=== PATIENT | female | born 2000 | race Caucasian/White ===

== ENCOUNTER 2019-06-19 22:54 | Emergency (ER) | payer OTHER ==
[~2019-06-19] VITALS: Ht 165.1 cm; Wt 69.9 kg
[2019-06-19] MEDS ORDERED: RX-ALBUTEROL INHALER (PROAIR) 8.5 GM IH PRN (23:30)
--- NOTE | 2019-06-19 23:53 | ED Cough/URI ---
General Chief Complaint: Cough/Cold/Flu Symptoms Stated Complaint: COUGHING,DIAG WITH FLU LAST WEEK Nursing Triage Note: DIAGNOSED WITH FLU LAST WEEK, SINCE HAS BEEN BACK TO URGENT CARE FOR INCESSANT COUGH. FEELS THOUGH THIS IS SETTLING IN TO HER LUNGS AND IS AFRAID SHE MAY HAVE PNEUMONIA. Sepsis Screen: No Definite Risk Source: patient Exam Limitations: no limitations History of Present Illness Date Seen by Provider: Jun 19, 2019 Time Seen by Provider: 23:20 Initial Comments Here with report of persistent cough. Seen earlier this week and started on steroids and cough medicine that isn't helping. Patient was worried that she has pneumonia. She did have influenza last week and this is a progression of that. Denies nausea, vomiting or diarrhea. Timing/Duration: week, getting worse Severity/Quality: moderate, productive cough Prior Episodes/Possible Cause: no prior episodes Modifying Factors: Worse With Activity, Worse With Coughing Associated Symptoms: cough, fever/chills, nasal congestion, shortness of breath, sore throat Allergies and Home Medications Allergies Coded Allergies: No Known Drug Allergies (Unverified , 06/19/19) Patient Home Medication List Home Medication List Reviewed: Yes Review of Systems Review of Systems Constitutional: see HPI EENTM: see HPI Respiratory: cough; No short of breath; wheezing Cardiovascular: no symptoms reported Gastrointestinal: no symptoms reported Genitourinary: no symptoms reported Musculoskeletal: no symptoms reported Past Nboeztl-Roluos-Mnbzjn Hx Past Med/Social Hx: Reviewed Nursing Past Med/Soc Hx Patient Social History Alcohol Use: Denies Use Recreational Drug Use: No 2nd Hand Smoke Exposure: No Recent Foreign Travel: No Contact w/Someone Who Travel: No Recent Infectious Disease Expo: No Recent Hopitalizations: No Physical Abuse: No Sexual Abuse: No Mistreated: No Fear: No Immunizations Up To Date PED Vaccines UTD: Yes Date of Influenza Vaccine: Mar 22, 2019 Past Medical History Surgeries: Yes ("EAR TUBES, BUNION ON LEFT FOOT") Adenoidectomy, Orthopedic, Tonsillectomy Respiratory: No Cardiac: No Neurological: No HIV/AIDS: No Genitourinary: No Gastrointestinal: No Musculoskeletal: No Endocrine: No HEENT: No Cancer: No Psychosocial: Yes Anxiety, Depression Blood Disorders: No Family Medical History Reviewed Nursing Family Hx Physical Exam Vital Signs - First Documented 06/19/19 23:02 Temp 36.8 Pulse 97 Resp 20 B/P (MAP) 126/79 (95) Pulse Ox 98 O2 Delivery Room Air Capillary Refill : Less Than 3 Seconds Height: '" Weight: lbs. oz. kg; 25.00 BMI Method: General Appearance: WD/WN, no apparent distress HEENT: pharyngeal erythema (. Mild with cobblestoning), other (clear rhinorrhea with mild to moderate erythema of the nasal conjunctiva bilateral) Neck: full range of motion, supple Respiratory: no respiratory distress, no accessory muscle use, other (coarse breath sounds with cough) Cardiovascular: regular rate, rhythm, no murmur Gastrointestinal: non tender, soft Neurologic/Psychiatric: alert, oriented x 3 Skin: normal color, warm/dry Progress/Results/Core Measures Suspected Sepsis Recent Fever Within 48 Hours: No Infection Criteria Present: None New/Unexplained Altered Menta: No Sepsis Screen: No Definite Risk SIRS Temperature: Pulse: 97 Respiratory Rate: 20 Blood Pressure 126 /79 Mean: 95 Results/Orders My Orders Orders - NARESH SHIPMAN MD Chest Pa/Lat (2 View) (06/19/19 23:12) Urine Bedside (06/19/19 23:12) Rx-Albuterol Inhaler (Rx-Proair) (06/19/19 23:30) Medications Given in ED Current Medications Medications Dose Ordered Sig/Tiffany Route Start Time Stop Time Status Last Admin Dose Admin Albuterol Sulfate 2 PUFFS QID PRN IH 06/19/19 23:30 06/19/19 23:40 8.5 GM Vital Signs/I&O 06/19/19 06/19/19 23:02 23:02 Temp 36.8 Pulse 97 Resp 20 B/P (MAP) 126/79 (95) Pulse Ox 98 O2 Delivery Room Air Capillary Refill : Less Than 3 Seconds Blood Pressure Mean: 95 Progress Note : Progress Note Seen and evaluated. UCG ordered and was negative. Two-view chest x-ray ordered. We will give albuterol MDI with spacer and teaching by RT as she has never used these before. Monitor patient. 2351: No acute findings on chest x-ray. Dischar ged home with return precautions. Patient verbalize understanding instructions and agreement with plan. Diagnostic Imaging Diagonstic Imaging: Xray Plain Films/CT/US/NM/MRI: chest Comments No acute findings Departure Impression Primary Impression: Bronchitis Disposition: HOME, SELF-CARE Condition: Stable Departure-Patient Inst. Decision time for Depature: 23:50 Referrals: NO,LOCAL PHYSICIAN (PCP) Primary Care Physician Patient Instructions: Viral Upper Respiratory Infection, Adult (DC), Acute Bronchitis, Adult (DC) Add. Discharge Instructions: All discharge instructions reviewed with patient and/or family. Voiced understanding. Use albuterol inhaler 2 puffs every 4 hours as needed for wheezing or cough. Continue other medications as directed. You may take Tylenol/acetaminophen 1000 mg every 8 hours as needed for fever or pain. You may take ibuprofen 600 mg every 8 hours as needed for fever or pain. You may use Afrin nasal spray or the generic, 12 hour relief, 2 sprays to each nostril twice daily for 3 days only and then stop. Do not use more than 3 days. Follow-up with your Dr. in a few days for recheck. Drink plenty of fluids. Return for worse pain, fever, vomiting, weakness, breathing problems or other concerns as needed. NARESH SHIPMAN MD Jun 19, 2019 23:52
[2019-06-19 23:55] VITALS: BP 126/79
--- NOTE | 2019-06-20 06:59 | Diagnostic Imaging Report ---
INDICATION: Diagnosed with flu 4 days ago, cough and inability to sleep. FINDINGS: 2 views of the chest demonstrate the lungs to be clear. The heart, mediastinum, pulmonary vascularity and visualized bony thorax are normal. IMPRESSION: Normal chest. Dictated by: Dictated on workstation # [id number]
== END 2019-06-19 23:55 | disposition home or self-care (01) ==
LOC: ER 22:56
DX: J40 Bronchitis, not specified as acute or chronic (principal)
CPT/HCPCS: 71046; 84703; 94640

== ENCOUNTER 2020-03-06 16:14 | Emergency (ER) | payer OTHER ==
[~2020-03-06] VITALS: Ht 165.1 cm; Wt 65.7 kg
[2020-03-06 16:29] VITALS: BP 119/69
--- NOTE | 2020-03-06 16:41 | ED Upper Extremity ---
General Chief Complaint: Laceration Stated Complaint: LEFT FINGER LACERATION Source: patient Exam Limitations: no limitations History of Present Illness Date Seen by Provider: Mar 06, 2020 Time Seen by Provider: 16:38 Onset: just prior to arrival Severity: mild Pain/Injury Location: left 4th finger Modifying Factors: Improves With Movement Allergies and Home Medications Allergies Coded Allergies: No Known Drug Allergies (Unverified , 06/19/19) Patient Home Medication List Home Medication List Reviewed: Yes Review of Systems Constitutional: see HPI EENTM: see HPI Respiratory: no symptoms reported Cardiovascular: no symptoms reported Genitourinary: no symptoms reported Musculoskeletal: see HPI Skin: no symptoms reported Psychiatric/Neurological: No Symptoms Reported Past Adslowc-Xdhjke-Lioezo Hx Patient Social History 2nd Hand Smoke Exposure: No Recent Foreign Travel: No Contact w/Someone Who Travel: No Recent Hopitalizations: No Immunizations Up To Date PED Vaccines UTD: Yes Date of Influenza Vaccine: Mar 22, 2019 Past Medical History Surgeries: Yes ("EAR TUBES, BUNION ON LEFT FOOT") Adenoidectomy, Orthopedic, Tonsillectomy Respiratory: No Cardiac: No Neurological: No HIV/AIDS: No Genitourinary: No Gastrointestinal: No Musculoskeletal: No Endocrine: No HEENT: No Cancer: No Psychosocial: Yes Anxiety, Depression Blood Disorders: No Physical Exam Vital Signs Capillary Refill : Height, Weight, BMI Height: '" Weight: lbs. oz. kg; 25.00 BMI Method: General Appearance: WD/WN, no apparent distress Respiratory: no respiratory distress, no accessory muscle use Shoulder: normal inspection, non-tender Elbow/Forearm: normal inspection, non-tender Wrist: Yes normal inspection, Yes non-tender Hand: Left, laceration (very small superficial cut radial side distal left ring finger. persistent oozing of blood stopped with a tourniquet and hemostasis achieved with skin affix. ) Neurologic/Psychiatric: alert, normal mood/affect, oriented x 3 Skin: normal color, warm/dry Departure Impression Primary Impression: Finger laceration Qualified Codes: S61.215A - Laceration without foreign body of left ring finger without damage to nail, initial encounter Disposition: HOME, SELF-CARE Condition: Stable Departure-Patient Inst. Decision time for Depature: 16:40 Referrals: [facility] (PCP/Family) Primary Care Physician Patient Instructions: Common Finger Injuries (DC) Add. Discharge Instructions: 1. Return to ER for any concerns 2. The glue will fall off on its own in 2-3 days. Dont apply any creams or ointments. You can shower. All discharge instructions reviewed with patient and/or family. Voiced understanding. VANIA FRANCISCO APRN Mar 06, 2020 16:41
== END 2020-03-06 16:51 | disposition home or self-care (01) ==
LOC: EDUNIT# 16:14 → ER 16:15
DX: S61.215A Laceration without foreign body of left ring finger without damage to nail, initial encounter (principal); X58.XXXA Exposure to other specified factors, initial encounter
CPT/HCPCS: 12001